=== PATIENT | male | born 1985 | race Caucasian/White ===

== ENCOUNTER 2018-01-17 06:58 | Emergency (ER) | payer BC ==
[~2018-01-17] VITALS: Ht 188 cm; Wt 104.3 kg
[2018-01-17 07:04] VITALS: BP 137/83
--- NOTE | 2018-01-17 07:04 | NUR ---
TO BED # 12 AMBULATORY
--- NOTE | 2018-01-17 07:12 | NUR ---
PT. CAME INTO THE ED DUE TO LACERATION S/P FALL LAST NIGHT. PT STATES " I WAS TALKING ON MY PHONE LAST NIGHT AND I WENT TO STEP OFF THE CURB AND I FELL AND HIT MY HEAD, THE AMBULANCE CAME I WAS FINE AND THEY WRAPPED IT UP BUT MY JOB WANTS ME TO COME GET CHECKED OUT". BLEEDING CONTROLLED. PT. IS AWAKE AND ABLE TO SPEAK IN FULL SENTENCES. PT DENIES - LOC. RR EVEN AND UNLABORED. PERRLA BILAT 3MM BRISK. PT DENIES ANY N/V/D. DENIES ANY VISION CHANGES. 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 ER MD NOTIFIED. WILL CONTINUE TO MONITOR. SAFETY PRECAUTIONS IMPLEMENTED.
[2018-01-17] MEDS ORDERED: LIDOCAINE/EPI 1% 1:100000 20 ML VIAL INJ ONE (07:45)
--- NOTE | 2018-01-17 08:25 | NUR ---
ER MD GONZALEZ IN ROOM PERFORMING LAC REPAIR, VSS. WILL CONTINUE TO MONITOR.
[2018-01-17] MEDS ORDERED: ACETAMINOPHEN 325 MG TAB ONE (08:52)
[2018-01-17] MEDS ORDERED: NEOMYCIN/POLYMYXIN/BACITRACIN 0.9 GM/1 PKT TP ONE (09:15)
[2018-01-17] MEDS ORDERED: ACETAMINOPHEN 650 MG/20.3 ML UDC PO ONE (09:15)
[2018-01-17 09:20] VITALS: BP 130/78
--- NOTE | 2018-01-17 09:20 | NUR ---
Patient discharged with v/s stable. Written and verbal after care instructions given and explained. Patient alert, oriented and verbalized understanding of instructions. Ambulatory with steady gait. All questions addressed prior to discharge. ID band removed. Patient advised to follow up with PMD. Rx of NAPROSYN AND CEPHELAXIN given. Patient educated on indication of medication including possible reaction and side effects. Opportunity to ask questions provided and answered.
== END 2018-01-17 09:20 | disposition home or self-care (01) ==
LOC: MED 06:58
DX: S01.01XA Laceration without foreign body of scalp, initial encounter (principal); F17.200 Nicotine dependence, unspecified, uncomplicated; R03.0 Elevated blood-pressure reading, without diagnosis of hypertension; W01.0XXA Fall on same level from slipping, tripping and stumbling without subsequent striking against object, initial encounter; Y93.89 Activity, other specified; Y92.89 Other specified places as the place of occurrence of the external cause; Y99.8 Other external cause status
CPT/HCPCS: 12034; 90471; 90715; 99284; J2001; 12004; 99283